=== PATIENT | female | born 1990 | race Caucasian/White ===

== ENCOUNTER 2019-09-27 18:08 | Emergency (ER) | payer OTHER ==
[2019-09-27 18:15] VITALS: BP 136/98; PULSE 96; TEMP 98.5
[2019-09-27] MEDS ORDERED: SODIUM CHLORIDE 0.9% 1000 ML INFUS.BAG IV ONE ×2 (19:22→20:28)
[2019-09-27 19:52] LABS: BASO % 0.5 % (0-2.0); EOS % 0.1 % (0-4.5); HEMATOCRIT 41.4 % (32.4-45.2); HEMOGLOBIN 13.4 GM/dl (10.7-15.3); LYMPH % 32.7 % (8-40); MCH 31.3 pg (25.7-33.7); MCHC 32.5 g/dl (32.0-36.0); MEAN CELL VOLUME 96.4 fl (80-96); MEAN PLT VOLUME 8.7 fl (7.5-11.1); MONO % 8.4 % (3.8-10.2); NEUT % 58.3 % (42.8-82.8); PLATELET COUNT 292 K/MM3 (134-434); RBC 4.29 M/mm3 (3.60-5.2); RDW 12.9 % (11.6-15.6); WHITE BLOOD COUNT 5.2 K/mm3 (4.0-10.8)
[2019-09-27 20:00] LABS: ALBUMIN 4.5 g/dl (3.4-5.0); BILIRUBIN,TOTAL 1.1 mg/dl (0.2-1); CREATININE 0.5 mg/dl (0.55-1.3); POTASSIUM 3.4 mmol/L (3.5-5.1); TOT PROT 7.6 g/dl (6.4-8.2)
--- NOTE | 2019-09-27 20:28 | PDOC ---
Documentation entered by Rola Miller SCRIBE, acting as scribe for Renee Mendieta MD. Renee Mendieta MD: This documentation has been prepared by the Paul gonzalez Adrianna, SCRIBE, under my direction and personally reviewed by me in its entirety. I confirm that the documentation accurately reflects all work, treatment, procedures, and medical decision making performed by me. History of Present Illness - General Chief Complaint: Nausea/Vomiting Stated Complaint: VOMITING, ABD DISCOMFORT Time Seen by Provider: 09/27/19 18:37 - History of Present Illness Initial Comments: 29 Y F, no significant PMH, presents with 2 days of nausea and vomit. Patient endorses nausea and 4-5 episodes of NBNB yesterday, with 2-3 episodes today. Patient endorses subjective chills, myalgias, and runny nose. She additionally complains of occasional abdominal cramping and bloating. She was seen at a today for this complaint, and was discharged with zofran. After taking the medication, the patient notes she had an episode of dizziness with palpitations. She came to the ED for further evaluation. Denies any sick contacts, but does note she recently flew to [place]. Allergies: NKA. NKDA Surgical History: None reported Social History: Social EtOH use. Denies tobacco or illicit drug use Past History - Past Medical History Allergies/Adverse Reactions: Allergies Allergy/AdvReac Type Severity Reaction Status Date / Time No Known Allergies Allergy Verified 09/27/19 18:10 Home Medications: Ambulatory Orders Ondansetron [Zofran *Odt*] 4 mg SL TID PRN 09/27/19 COPD: No Other medical history: pt denies - Reproductive History (#): 0 Para: 0 Therapeutic (s) & number: No Spontaneous : 0 - Psycho Social/Smoking Cessation Hx Smoking History: Never smoked Have you smoked in the past 12 months: No Information on smoking cessation initiated: No Hx Alcohol Use: (occasional) Drug/Substance Use Hx: No Substance Use Type: None Review of Systems - Review of Systems Comments:: GENERAL/CONSTITUTIONAL: +Subjective chills. No fever. No weakness. HEAD, EYES, EARS, NOSE AND THROAT: +Runny nose. No change in vision. No ear pain or discharge. No sore throat. CARDIOVASCULAR: +Palpitations. No chest pain or shortness of breath. RESPIRATORY: No cough, wheezing, or hemoptysis. GASTROINTESTINAL: +Nausea. +Vomit. +Abdominal cramping and bloating. No diarrhea or constipation. GENITOURINARY: No dysuria, frequency, or change in urination. MUSCULOSKELETAL: +Myalgias. No joint or muscle swelling. No neck or back pain. SKIN: No rash NEUROLOGIC: +Dizziness. No headache, loss of consciousness, or change in strength/sensation. ENDOCRINE: No increased thirst. No abnormal weight change. HEMATOLOGIC/LYMPHATIC: No anemia, easy bleeding, or history of blood clots. ALLERGIC/IMMUNOLOGIC: No hives or skin allergy. *Physical Exam - Vital Signs Last Vital Signs Temp Pulse Resp BP Pulse Ox 98.5 F 96 H 18 136/98 99 09/27/19 18:08 09/27/19 18:08 09/27/19 18:08 09/27/19 18:08 09/27/19 18:08 - Physical Exam GENERAL: Awake, alert, and fully oriented, in no acute distress HEAD: No signs of trauma EYES: PERRLA, EOMI, sclera anicteric, conjunctiva clear ENT: Moist mucosa LUNGS: Breath sounds equal, clear to auscultation bilaterally. No wheezes, and no crackles HEART: Regular rate and rhythm, normal S1 and S2, no murmurs, rubs or gallops ABDOMEN: Soft, nontender, normoactive bowel sounds. No guarding, no rebound. No masses EXTREMITIES: Normal range of motion, no edema. No erythema or tenderness. DP/PT pulses 2+ and symmetric. Warm and well perfused. NEUROLOGICAL: Moves all extremities. Normal speech, normal gait SKIN: Warm, Dry, normal turgor, no rashes or lesions noted. 09/27/19 20:25 ED Treatment Course - LABORATORY CBC & Chemistry Diagram: 09/27/19 19:45 09/27/19 22:00 - ADDITIONAL ORDERS Additional order review: Laboratory Results 09/27/19 09/27/19 19:45 19:45 Sodium 129 L Potassium 3.4 L Chloride 97 L Carbon Dioxide 26 Anion Gap 6 L BUN 7.0 Creatinine 0.5 L Est GFR (CKD-EPI)AfAm 153.73 Est GFR (CKD-EPI)NonAf 132.64 Random Glucose 98 Calcium Total Bilirubin 1.1 H AST 22 ALT 14 Alkaline Phosphatase 41 L Total Protein 7.6 Albumin 4.5 Urine HCG, Qual Negative 09/27/19 19:45 RBC 4.29 MCV 96.4 H MCHC 32.5 RDW 12.9 MPV 8.7 Neutrophils % 58.3 Lymphocytes % 32.7 Monocytes % 8.4 Eosinophils % 0.1 Basophils % 0.5 - Medications Given in the ED: ED Medications Discontinued Medications Generic Name Dose Route Start Last Admin Trade Name Tavia PRN Reason Stop Dose Admin Sodium Chloride 1,000 ml 09/27/19 19:22 09/27/19 19:43 Normal Saline - IV 09/27/19 19:23 1,000 ml ONCE ONE Administration Medical Decision Making - Medical Decision Making 09/27/19 20:26 29-year-old female no past medical history here today complaining of nausea vomiting diarrhea. Patient states she threw up approximately 5 times today has also had loose watery stool all been nonbloody nonbilious does have subjective chills no fevers but describes myalgias and runny nose. No sick contacts did recently travel to [place] so was traveling in a plane no abdominal pain but does have occasional cramps and bloating feeling On my exam patient is awake alert appears to be well-hydrated moist mucous membranes abdomen is soft nontender Differential includes dehydration, electrolyte abnormality, pancreatitis gastroenteritis likely viral plan IV hydration patient has already received Zofran prior to arrival will consider Reglan at this time did describe some twinge feeling in her chest after taking Zofran will obtain an EKG to make sure she has normal QT likely DC home with symptomatic treatment 09/27/19 20:28 pt noted to have mild hyponatremia. will treat with second liter of normal saline. likley hypovolemic hyponatremia. will repeat sodium following hydration. 09/27/19 22:30 sodium improve wtih iv hydration to 132. potassium repleted 3.2 will dc home with GE instructions Discharge - Discharge Information Problems reviewed: Yes Clinical Impression/Diagnosis: Gastroenteritis Condition: Stable Disposition: HOME - Follow up/Referral - Patient Discharge Instructions Patient Printed Discharge Instructions: Viral Gastroenteritis, DI for Vomiting -- Adult Additional Instructions: you should drink gatorade or some electrolyte replenishment drink to hydrate. bland food for 24 - 48 hours. Bananas, broths, crackers rice and applesauce will help with diarrhea. return for persistant vomiting, high fevers worsening abdominal pain or any concerns. your sodium was low 129 after replenishment it is improved to 132. your potassium is low from vomiting so you were given potassium in the ED. follow up with your regular doctor as needed. - Post Discharge Activity
[2019-09-27 22:25] LABS: CALCIUM 7.9 mg/dl (8.5-10); CREATININE 0.6 mg/dl (0.55-1.3); POTASSIUM 3.2 mmol/L (3.5-5.1)
[2019-09-27] MEDS ORDERED: POTASSIUM CHLORIDE TABS 20 MEQ TABLET.ER (FP) PO ONE ×2 (22:28→22:30)
[2019-09-27] MEDS ORDERED: ONDANSETRON 4 MG/2 ML VIAL IVPUSH ONE (22:31)
[2019-09-27] MEDS ORDERED: ONDANSETRON 4 MG/2 ML VIAL ONE (22:31)
--- NOTE | 2019-09-28 23:25 | EKG ---
Test Reason : Blood Pressure : / mmHG Vent. Rate : 085 BPM Atrial Rate : 085 BPM P-R Int : 204 ms QRS Dur : 078 ms QT Int : 398 ms P-R-T Axes : 066 069 052 degrees QTc Int : 473 ms NORMAL SINUS RHYTHM POSSIBLE LEFT ATRIAL ENLARGEMENT BORDERLINE ECG NO PREVIOUS ECGS AVAILABLE Confirmed by TOSHA GRUBBS, AVEL ([id number]) on 09/28/2019 11:24:40 PM Referred By: DR GALLOWAY Confirmed By:AVEL GIVENS MD
== END 2019-09-27 22:58 | disposition home or self-care (01) ==
LOC: FER 18:08
PROC: 3E033GC Introduction of Other Therapeutic Substance into Peripheral Vein, Percutaneous Approach (ICD-10-PCS; principal; 2019-09-27)
PROC: 3E0337Z Introduction of Electrolytic and Water Balance Substance into Peripheral Vein, Percutaneous Approach (ICD-10-PCS; 2019-09-27)
DX: K52.9 Noninfective gastroenteritis and colitis, unspecified (principal)
CPT/HCPCS: 36415; 80048; 80053; 83690; 84703; 85025; 93005; 99284-25; J7030

== ENCOUNTER 2021-02-27 23:45 | Emergency (ER) | payer OTHER ==
[2021-02-27] MEDS ORDERED: AMOX TR/POT CLAV 875MG/125MG TABLETS (FP) PO ONE (23:50)
[2021-02-27] MEDS ORDERED: KETOROLAC TROMETHAMINE 30 MG/1 ML VIAL IM ONE (23:52)
[2021-02-27 23:54] VITALS: BP 120/73; PULSE 74; TEMP 98.2
[2021-02-27] MEDS ORDERED: AMOX TR/POT CLAV 875MG/125MG TABLETS (FP) ONE (23:55)
[2021-02-27] MEDS ORDERED: KETOROLAC TROMETHAMINE 30 MG/1 ML VIAL ONE (23:55)
== END 2021-02-28 | disposition home or self-care (01) ==
LOC: FER 23:45
PROC: 3E0233Z Introduction of Anti-inflammatory into Muscle, Percutaneous Approach (ICD-10-PCS; principal; 2021-02-27)
DX: H60.501 Unspecified acute noninfective otitis externa, right ear (principal)
CPT/HCPCS: 99284-25